=== PATIENT | female | born 1960 | race Caucasian/White ===

== ENCOUNTER 2017-07-06 12:34 | Inpatient (IN) ==
[2017-07-06] MEDS ORDERED: CeFAZolin Syr 3,000MG/30 ML 3,000 MG/30 ML SYRINGE IVPB ONE (13:06)
[2017-07-06] MEDS ORDERED: Albuterol 2.5 MG/3 ML NEBULIZER IH ONE (13:06)
[2017-07-06] MEDS ORDERED: Lidocaine -MPF 1% 2 ML VIAL ID ONE (13:06)
[2017-07-06] MEDS ORDERED: Ringers Solution, Lactated 1,000 ML IVC SCH ×3 (13:15→18:17)
[2017-07-06] MEDS ORDERED: Vancomycin 2,000 MG in D5% in Water 500 ML IVPB ONE (13:20)
--- NOTE | 2017-07-06 13:22 | Anesthesia Evaluation PreOp ---
Date of Encounter: 07/06/17 Time of Encounter: 13:19 - Past History Planned Operation: right total knee Cardiac History: HTN, Hyperlipidemia, Arrhythmia (a-fib), Cardiac Surgery (CABG) , Pacemaker/ICD (for SSS, completely pacer dependent), Other (CAD) Pulmonary History: Asthma, ZAIDA Dx CHIEF HOSPITAL ADMINISTRATOR History: Denies Any Significant HX Other Medical History: GERD, Other (IBS, morbid obesity) Anesthesia History: No Prior Anesthetic Complications, Past Anesthesia (CABG, pacer, breast lumpectomy, knee scope, tubal) : No Alcohol Use: none Drug use: none Medications and Allergies 3 Allergy/AdvReac Type Severity Reaction Status Date / Time bupropion [From Wellbutrin] Allergy See Unverified 07/06/17 13:25 Comments latex Allergy Rash Unverified 06/21/17 10:37 - Meds/Allergy Pre-op Review Medications Reviewed: Yes Allergies Reviewed: Yes Beta Blockers on Current Med List: Yes (0577) Anesthesia Results - Labs Laboratory Tests 06/21/17 06/21/17 06/21/17 10:51 10:51 10:51 Hgb 11.4 L Hct 35.9 Plt Count 165 PT 17.5 H INR 1.6 APTT 35.0 BUN 23 H Creatinine 1.13 H - Imaging Additional studies: Cath report from [facility] 10/04/16: 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, overall LV systolic function lower limits of normal, EF 45-50% Anesthesia Exam Selected Entries 07/06/17 12:56 Temperature 98.4 F Pulse Rate 60 Respiratory Rate 18 Blood Pressure 127/75 O2 Sat by Pulse Oximetry 95 Weight: 166kg, [id number] NPO (# of Hours): 8 - HEENT Pupil (Motor): EOMI Mallampati: III Teeth: Missing, Poor dentition Oral Opening: Less than or equal to 3 - CHIEF HOSPITAL ADMINISTRATOR LOC: Oriented CHIEF HOSPITAL ADMINISTRATOR Motor: Normal RUE, Normal LUE, Normal RLE, Normal LLE, Normal Face CHIEF HOSPITAL ADMINISTRATOR Sensory: Normal: RUE, LUE, RLE, LLE, Face - Cardiac Rhythm: Regular Murmur: None - Pulmonary Breath Sounds: bilateral Clear Respiratory Effort: Symmetrical Anesthesia Assess/Plan ASA Score: 4 Modified Ikng Scale for Level of Consciousness: Cooperative, oriented, and tranquil Anesthetic Plan: General Monitoring Plan: Standard Monitors Recovery Plan: PACU (discussed her high risk for GA d/t obesity and heart disease. Agrees to risk. We will attempt nerve block but patient aware we may not be able to do.)
--- NOTE | 2017-07-06 13:36 | History & Physical Report ---
Date of Encounter: 07/06/17 Time of Encounter: 13:36 24 Hour HP Update - Instructions Instructions: If the History and Physical is less than 30 days old and was completed prior to A.M. admission and or procedure and has NOT been updated on calendar day of procedure please complete this update prior to performing procedure. - Update Patient reports changes in Medical Condition: No Changes in examination, assessment, or condition: No Changes in Medication: No Preop tests/diagnostics Reviewed: Yes Surgery Remains Indicated: Yes Consent for Planned Operative Procedure(s) Verified: Yes - Pre-Operative Checklist Preoperative Checklist Indicated: No Prophylactic Antibiotic Ordered: Yes Is VTE Prophylaxis Indicated?: Yes
[2017-07-06] MEDS ORDERED: ROPIVACAINE HCL/PF 0.5% 30 ML VIAL ONE (13:45)
[2017-07-06] MEDS ORDERED: Lidocaine -MPF 2% 2 ML VIAL ONE (13:45)
[2017-07-06] MEDS ORDERED: *HR* FentaNYL (PF) 100 MCG/2 ML VIAL ONE (13:45)
[2017-07-06] MEDS ORDERED: *HR* Propofol 200 MG/20 ML VIAL IVP ONE (13:45)
[2017-07-06] MEDS ORDERED: *HR* Midazolam HCl 2 MG/2 ML VIAL ONE (13:45)
[2017-07-06] MEDS ORDERED: Dexamethasone 4 MG/ML VIAL ONE (13:45)
[2017-07-06] MEDS ORDERED: *HR* Succinylcholine 200 MG/10 ML VIAL IVP ONE (13:45)
[2017-07-06] MEDS ORDERED: Bupivacaine/Clonidine Syringe 1 EACH SYRINGE ONE (13:45)
[2017-07-06] MEDS ORDERED: Ondansetron 4 MG/2 ML VIAL ONE (13:45)
[2017-07-06] MEDS ORDERED: Ethanol\\Acetic Acid\\Na Ace\\Ben 1,000 ML IRRIG.SOLN IR ONE (13:57)
[2017-07-06] MEDS ORDERED: Ketamine *HR* 500 MG/10 ML MDV ONE (15:51)
[2017-07-06] MEDS ORDERED: EPHEDrine 50 MG/ML VIAL ONE (16:13)
[2017-07-06] MEDS ORDERED: Ondansetron 4 MG/2 ML VIAL IVP ONE (16:17)
[2017-07-06] MEDS ORDERED: *HR* HYDROmorphone (PF) 1 MG/ML SYRINGE IVP PRN (16:17)
--- NOTE | 2017-07-06 16:20 | Anesthesia Procedures ---
Date of Encounter: 07/06/17 Time of Encounter: 15:10 Procedures: Anesthesia - Nerve Block Procedure Date: 07/06/17 Time: 15:10 Allergies/Adv Reactions: wellbutrin, latex Pre-op Diagnosis: right knee arthritis Surgical Procedure: Right knee robotic total knee replacement Checklist: Correct Patient Identifier, Correct procedure, History checked Correct side: Right Blood Thinner: No Monitor Applied: EKG, BP, Pulse Oximetry Supplemental Oxygen via Nasal Cannula (L/min): 2 Sedation: Versed (mg): 2 Sedation: Fentanyl (mcg): 100 Indication: Post Op Analgesia Pre-op Neuro Deficits: No Block Type: Femoral, Other (IPAC) Catheter placed: No Sterile Technique: Yes Ultrasound used: Yes Anatomy identified: Yes Visual spread of Local: Yes Neuro Stimulation: Yes Nerve Stimulator Range: 0.2 - 0.4 mA Blood on Needle Aspiration: No Smooth Injection of Local: Yes Pain with Injection of Local: No Prep: Chlorhexadine Needle: 21 x 100 mm Stimuplex Local: 0.25% Bupivicaine w/Clonidine 20 mcg/cc (20ml IPAC), Ropivacaine (0.5% 30 ML) Volume (cc): 50 Number of Attempts: 1 Complications: None/effective block Vitals: Vital Signs Temperature 98.4 F 07/06/17 12:56 Pulse Rate 60 07/06/17 12:56 Respiratory Rate 18 07/06/17 12:56 Blood Pressure 127/75 07/06/17 12:56 O2 Sat by Pulse Oximetry 95 07/06/17 12:56 Temperature 98.4 F 07/06/17 13:26 Pulse Rate 60 07/06/17 15:12 Respiratory Rate 18 07/06/17 13:26 Blood Pressure 152/76 07/06/17 15:12 O2 Sat by Pulse Oximetry 97 07/06/17 15:12
[2017-07-06] MEDS ORDERED: *HR* Etomidate 40 MG/20 ML VIAL IVP ONE (16:47)
[2017-07-06] MEDS ORDERED: *HR* Rocuronium Bromide 50 MG/5 ML VIAL ONE (16:47)
[2017-07-06] MEDS ORDERED: Neostigmine Methylsulfate 3 MG/3 ML SYRINGE ONE (16:47)
[2017-07-06] MEDS ORDERED: Acetaminophen IV 1,000 MG/100 ML INFUS..BTL ONE (16:53)
--- NOTE | 2017-07-06 17:03 | Orthopedic Operative Note ---
Date of procedure: 07/06/17 Pre-op diagnosis: Right knee arthritis Post-op diagnosis: same Procedure: Procedure: Right robotic-assisted Total knee replacement Estimated blood loss: 300 cc Hardware: Metal and polyethylene replacement. [place] Femur: 4 Tibia for : PS insert: 9 Patella: 36 Exam Under anesthesia: 7 degree flexion contracture, 3 degree valgus as calculated by the robot full flexion and no instability Procedural Notes: Weight 4 arthritic changes all 3 compartments. Operative procedure: The patient was brought to the operating room and placed on the operating room table. After general anesthesia was administered the operative knee was examined. Findings were noted in the exam under anesthesia. The operative extremity was prepped and draped in sterile surgical fashion. The patient received IV antibiotics prior to skin incision. A standard midline incision was made centered over the patella. The incision was made through the skin and subcutaneous tissue. A medial parapatellar tendon approach was performed. Care was taken to preserve tissue along the medial aspect of the patella. And to protect the patella tendon. The deep MCL was released off the medial tibia. The infra patella fat pad was excised. The patella was everted and cut was made at the level of the insertion of the quadriceps and patella tendon. The patella was sized to a 36 the guide was seated and the lug holes are drilled. Knee was brought into flexion. Patient noted to have a 4 arthritic changes all 3 compartments. Steinmann pins were placed in the tibia and the femur for the tibial and femoral arrays respectively. Checkpoints were also placed in the tibia and the femur for calculation purposes. The knee including the femur and the tibial registered. Osteophytes, ACL and PCL were excised at this point. Extension was to a flexion contracture of 7 and valgus of 3. A valgus was applied and 0 degrees and assessed, and at 90 degrees of flexion and assessed and components were adjusted on the computer for the robotic cut positions. Femoral cuts were made first with robotic assistance, these included the anterior cut posterior cuts chamfer cuts. Tibial cut was then performed with robotic assistance as well. Bone fragments were removed, as well as the medial and lateral meniscus. The size 4 femoral guide was seated box cut was made lug holes are drilled. The size 4tibial tray was seated and prepared with the fin cutter. Trial reduction with the 9 PS Ananya revealed extension of loss of 5 degrees degree and full flexion. With a 3 degree varus alignment. Trial reduction revealed excellent patella tracking. All trial components were removed all bony surfaces were irrigated. Tibias press-fit followed by the femur PS Ananya size X was seated and secured patella. Patient had similar findings for motion and stability. The knee was then irrigated out with 2 L of pulse irrigation. The extensor mechanism was closed with #2 FiberWire suture and #2 PDS suture. The subcutaneous tissue was then irrigated and closed deep with #1 PDS suture superficially with 0 PDS suture and skin was closed with zip tie The patient was then placed in a sterile dressing and a postoperative brace extubated and transferred to recovery room in stable condition. Anesthesia: GETA Surgeon: Aaron Clement Condition: stable Disposition: PACU
[2017-07-06] MEDS ORDERED: *HR* HYDROmorphone 2 MG/ML SYRINGE ONE (17:05)
[2017-07-06 17:48] LABS: Hematocrit 31.5 % (35.3-44.9); Hemoglobin 10.4 g/dL (11.5-15.4)
--- NOTE | 2017-07-06 17:51 | Anesthesia Evaluation Post Op ---
Date of Encounter: 07/06/17 Time of Encounter: 17:50 - Vital Signs Vital Signs: Selected Entries 07/06/17 17:11 07/06/17 17:41 Temperature 97.8 F Pulse Rate 60 Respiratory Rate 16 Blood Pressure 127/71 O2 Sat by Pulse Oximetry 99 Oxygen Flow Rate (LPM) 4 - Lungs Lungs: Clear Ascult./Percussion - Airway Airway: Non-obstructed - Cardiovascular Regular Rate - Mental Status Mental Status: Alert & Oriented, Answers Appropriately - Pain Pain Scale: 3 Pain Scale used: Numeric (1 - 10) - Nausea Vomiting Nausea Vomiting: Not Present - Hydration Hydration: Ice chips, Has not voided - Discharge PostOp Status: Transfer Patient to floor
[2017-07-06] MEDS ORDERED: MOM Conc 10 ML UD.LIQ PO PRN (18:17)
[2017-07-06] MEDS ORDERED: tiZANidine 4 MG TABLET PO PRN (18:17)
[2017-07-06] MEDS ORDERED: Sennosides 8.6 MG TABLET PO PRN (18:17)
[2017-07-06] MEDS ORDERED: Ondansetron 4 MG/2 ML VIAL IVP PRN (18:17)
[2017-07-06] MEDS ORDERED: *HR* LORazepam 0.5 MG TABLET PO PRN (18:17)
[2017-07-06] MEDS ORDERED: *HR* OxyCODONE Immed Rel 5 MG TABLET PO PRN (18:17)
[2017-07-06] MEDS ORDERED: Naloxone 0.4 MG/ML INJ IVP PRN (18:17)
[2017-07-06] MEDS ORDERED: Temazepam 15 MG CAPSULE PO PRN (18:17)
[2017-07-06] MEDS: Gabapentin 300 MG CAPSULE PO SCH (20:11)
[2017-07-06] MEDS: Famotidine 20 MG TABLET PO SCH (20:11)
[2017-07-06] MEDS: Ibuprofen 800 MG TABLET PO SCH (20:11)
[2017-07-06] MEDS: *HR* HYDROmorphone (PF) 1 MG/ML SYRINGE IVP PRN (22:10)
[2017-07-06] MEDS: *HR* OxyCODONE Immed Rel 5 MG TABLET PO PRN (23:40)
[2017-07-06] MEDS: CeFAZolin Premix DUPLEX 2,000 MG/50 ML BAG IVPB SCH (23:41)
[2017-07-07] MEDS: *HR* HYDROmorphone (PF) 1 MG/ML SYRINGE IVP PRN ×2 (02:54→18:28)
[2017-07-07 04:31] LABS: Hematocrit 31.5 % (35.3-44.9); Hemoglobin 10.4 g/dL (11.5-15.4)
[2017-07-07 04:45] LABS: BUN/Creatinine Ratio 22 (6-26); Blood Urea Nitrogen 23 mg/dL (6-20); Calcium 8.9 mg/dL (8.6-10.3); Carbon Dioxide 29 mEq/L (23-29); Chloride 101 mEq/L (98-107); Glucose 184 mg/dL (70-105); Osmolality,Calculated 288 (280-300); Potassium 3.9 mEq/L (3.5-5.1); Sodium 135 mEq/L (136-145); eGFR For African Americans > 60 (> 60); eGFR For Non-African Americans 55 (> 60)
[2017-07-07] MEDS: *HR* OxyCODONE Immed Rel 5 MG TABLET PO PRN ×2 (05:32→17:45)
[2017-07-07] MEDS: Aspirin Enteric Coated 81 MG Tablet PO SCH (07:50)
[2017-07-07] MEDS: *HR* Rivaroxaban 10 MG TABLET PO SCH (07:52)
[2017-07-07] MEDS: Isosorbide MONOnitrate (24 HR) 60 MG TAB.ER.24H PO SCH (07:52)
[2017-07-07] MEDS: Diltiazem CD (24hr) 240 MG CAPSULE PO SCH (07:52)
[2017-07-07] MEDS: Famotidine 20 MG TABLET PO SCH ×2 (07:52→19:35)
[2017-07-07] MEDS: Gabapentin 300 MG CAPSULE PO SCH ×3 (07:52→19:35)
[2017-07-07] MEDS: CeFAZolin Premix DUPLEX 2,000 MG/50 ML BAG IVPB SCH (07:53)
[2017-07-07] MEDS: Ibuprofen 800 MG TABLET PO SCH ×3 (08:04→19:36)
--- NOTE | 2017-07-07 08:09 | Orthopedics Progress Note ---
Date of Encounter: 07/07/17 Time of Encounter: 08:09 Subjective Interval history: Patient was seen this morning doing well without complaints. Afebrile vital signs stable. Operative extremity: Neurovascularly intact Dressing clean dry and intact Calves nontender Assessment and plan: Continue with postoperative care Hematocrit 31 Objective Vital signs: Vital Signs Temp Pulse Resp BP Pulse Ox 07/07/17 04:02 97.6 F 61 17 120/75 95 07/06/17 23:29 97.6 F 72 18 144/70 99 07/06/17 20:05 97.6 F 65 15 104/59 99 07/06/17 19:05 97.5 F L 63 12 104/68 98 07/06/17 18:41 97.5 F L 62 12 114/65 97 07/06/17 18:12 96.9 F L 59 9 137/61 99 07/06/17 18:10 96.9 F L 59 9 137/61 99 07/06/17 17:41 60 16 127/71 99 07/06/17 17:31 60 14 132/76 93 07/06/17 17:21 60 18 132/62 96 07/06/17 17:11 97.8 F 60 12 135/70 93 07/06/17 15:12 60 152/76 97 07/06/17 15:00 62 130/84 98 07/06/17 13:26 98.4 F 60 18 127/75 95 07/06/17 12:56 98.4 F 60 18 127/75 95 Intake and Output 07/06/17 07/07/17 07/07/17 23:59 07:59 15:59 Intake Total 50 / 50 550 / 550 Output Total 300 / 300 400 / 400 Balance -250 / -250 150 / 150 Intake: IV Fluids 50 / 50 Ancef Premix DUPLEX 2,000 mg In 50 / 50 50 ml @ 100 mls/hr IVPB Q8HR [facility] Rx#:[id number] Oral 50 / 50 500 / 500 Output: Urine 400 / 400 Estimated Blood Loss 300 / 300 Other: Percent of Meal Consumed 100% - Labs CBC & BMP: 07/07/17 04:09 07/07/17 04:09 Labs: Abnormal lab results Hgb 10.4 g/dL (11.5-15.4) L 07/07/17 04:09 Hct 31.5 % (35.3-44.9) L 07/07/17 04:09 Sodium 135 mEq/L (136-145) L 07/07/17 04:09 BUN 23 mg/dL (6-20) H 07/07/17 04:09 Est GFR (Non-Af Amer) 55 (> 60) L 07/07/17 04:09 Glucose 184 mg/dL (70-105) H 07/07/17 04:09 - VTE Documentation of Mechanical Device: Venous foot pump, device Consult Discharge Plan - Plan Referrals: Suellen Ozuna, IMPROVEMENT RN [Primary Care Provider] -
--- NOTE | 2017-07-07 15:48 | Physician Discharge Referral ---
Home Health/Hosp Referral Info Attending Provider: Dr. Clement - Diagnosis (1) Status post total right knee replacement Priority: Primary Status: Acute - Respiratory Orders Smoking Cessation: Smoking cessation has been advised. For more information, call the [employer] Tobacco Quit Line at 2-487-CFIA-NOW. - Dressing/Wound Care Site: right hip Type of Dressing/Treatments w/Frequency: Opsite placed. Keep dressing intact until first follow up appointment. If > 50% saturated, notify office, remove dressing and place appropriate dressing back in place. Dressing is water resistant, not water-proof. OK to shower, but do not get dressing wet. - Diet/Nutrition Diet/Nutrition Orders: Regular - Activity Activity Orders: Ambulate - Services Needed Following services are medically necessary services: Physical Therapy, Occupational Therapy Other Treatments: Total Knee replacement Precautions x 6 weeks Apply cold therapy wrap 3-6x/day for 20 minutes at a time. Encourage ambulation throughout the day and incentive spirometer 10x/hour. Elevate affected extremity above heart as tolerated. Brace: Wear knee immobilizer at night x 2 weeks. - Transfer Medications Home Medications: Albuterol Sulfate [Proair Hfa] 2 puff IH Q6H PRN 07/06/17 [History] Aspirin [Lo-Dose Aspirin EC] 81 mg PO DAILY 07/06/17 [History] Atorvastatin [Lipitor] 40 mg PO HS 07/06/17 [History] Carvedilol [Carvedilol] 12.5 mg PO BID 07/06/17 [History] Clopidogrel [Plavix] 75 mg PO DAILY 07/06/17 [History] Diltiazem HCl [Diltiazem ER] 240 mg PO DAILY 07/06/17 [History] Gabapentin [Neurontin] 300 mg PO TID 07/06/17 [History] Ibuprofen [Ibuprofen] 800 mg PO TID 07/06/17 [History] Isosorbide MONOnitrate (24 HR) [Imdur] 60 mg PO DAILY 07/06/17 [History] LORazepam [Ativan] 0.5 mg PO Q8H PRN 07/06/17 [History] Levothyroxine Sodium 75 mcg PO DAILY 07/06/17 [History] Lisinopril-HCTZ 10-12.5 [Prinzide 10-12.5] 1 tab PO BID 07/06/17 [History] Ranitidine HCl [Heartburn Relief] 150 mg PO BID 07/06/17 [History] Rivaroxaban [Xarelto] 20 mg PO DAILY 07/06/17 [History] Tizanidine HCl [Tizanidine HCl] 4 mg PO BID PRN 07/06/17 [History] Allergies/Adverse Reactions: 3 Allergy/AdvReac Type Severity Reaction Status Date / Time bupropion [From Wellbutrin] Allergy See Verified 07/07/17 15:48 Comments latex Allergy Rash Verified 07/07/17 15:48 Certification: Further, I certify that my clinical findings support that this patient is homebound (i.e. absences from home require considerable and taxing effort and are for medical reasons or baptism services or infrequently or short duration when for other reasons) because: Homebound Reason: Post-surgery restriction and or conditions limit ability to leave home Attestation: My signature below is to certify that this patient is under my care and that I, or nurse practitioner, or a physician environmental engineering assistant working with me, has a face-to- face encounter with this patient.
--- NOTE | 2017-07-07 15:54 | Physician Discharge Referral ---
ExtendedCare Referral Info Transfer To: REPLACED BY [facility] Provider in Charge: Dr. Clement - Diagnosis (1) Status post total right knee replacement Priority: Primary Status: Acute Expected Duration of Placement: <30 days Prognosis: Good Aware of Diagnosis: Patient Aware of Prognosis: Patient - Transfer Medications Home Medications: Albuterol Sulfate [Proair Hfa] 2 puff IH Q6H PRN 07/06/17 [History] Aspirin [Lo-Dose Aspirin EC] 81 mg PO DAILY 07/06/17 [History] Atorvastatin [Lipitor] 40 mg PO HS 07/06/17 [History] Carvedilol [Carvedilol] 12.5 mg PO BID 07/06/17 [History] Clopidogrel [Plavix] 75 mg PO DAILY 07/06/17 [History] Diltiazem HCl [Diltiazem ER] 240 mg PO DAILY 07/06/17 [History] Gabapentin [Neurontin] 300 mg PO TID 07/06/17 [History] Ibuprofen [Ibuprofen] 800 mg PO TID 07/06/17 [History] Isosorbide MONOnitrate (24 HR) [Imdur] 60 mg PO DAILY 07/06/17 [History] LORazepam [Ativan] 0.5 mg PO Q8H PRN 07/06/17 [History] Levothyroxine Sodium 75 mcg PO DAILY 07/06/17 [History] Lisinopril-HCTZ 10-12.5 [Prinzide 10-12.5] 1 tab PO BID 07/06/17 [History] Ranitidine HCl [Heartburn Relief] 150 mg PO BID 07/06/17 [History] Rivaroxaban [Xarelto] 20 mg PO DAILY 07/06/17 [History] Tizanidine HCl [Tizanidine HCl] 4 mg PO BID PRN 07/06/17 [History] Allergies/Adverse Reactions: 3 Allergy/AdvReac Type Severity Reaction Status Date / Time bupropion [From Wellbutrin] Allergy See Verified 07/07/17 15:48 Comments latex Allergy Rash Verified 07/07/17 15:48 - Respiratory Orders Smoking Cessation: Smoking cessation has been advised. For more information, call the [place] Tobacco Quit Line at 0-149-BXBV-NOW. - Ancillary Orders May use pressure relief devices daily prn, May go on JAVON w/family/respon democrat w /meds at nurse discretion PRN, May consult with Dentist, Inlayer, Report Clerk PRN - Mobility Orders Chair, Ambulate - Rehabiliation Orders Rehab Potential: Good Rehab Orders: Evaluation for Physical Therapy, Evaluation for Occupational Therapy Other: Total Knee replacement Precautions x 6 weeks Apply cold therapy wrap 3-6x/day for 20 minutes at a time. Encourage ambulation throughout the day and incentive spirometer 10x/hour. Elevate affected extremity above heart as tolerated. Brace: Wear knee immobilizer at night x 2 weeks. - Treatments Skin tear care topically daily PRN per policy List/Other: Opsite placed. Keep dressing intact until first follow up appointment. If > 50% saturated, notify office, remove dressing and place appropriate dressing back in place. Dressing is water resistant, not water-proof. OK to shower, but do not get dressing wet. - Diet Orders Regular CERTIFICATION: I certify that the transfer of the above named patient to an Extended Care Facility is necessary for the continuing treatment of the diagnosis listed. The above information is true and accurate reflection of patient's current condition. Confidential - Redisclosure prohibited without a patient's written consent.
[2017-07-08 01:34] LABS: Hematocrit 28.3 % (35.3-44.9); Hemoglobin 9.2 g/dL (11.5-15.4)
[2017-07-08] MEDS: *HR* OxyCODONE Immed Rel 5 MG TABLET PO PRN ×4 (01:35→16:57)
[2017-07-08 01:56] LABS: Calcium 8.8 mg/dL (8.6-10.3); Potassium 4.3 mEq/L (3.5-5.1)
[2017-07-08] MEDS: *HR* HYDROmorphone (PF) 1 MG/ML SYRINGE IVP PRN (02:49)
--- NOTE | 2017-07-08 06:42 | Discharge Summary ---
Date of Encounter: 07/09/17 Time of Encounter: 11:08 - Discharge Diagnosis (1) Arthritis of right knee Priority: Primary Status: Chronic (2) Morbid obesity with BMI of 50.0-59.9, adult Priority: Secondary Status: Chronic (3) Hypertension Priority: Secondary Status: Chronic Qualifiers: Hypertension type: unspecified Qualified Code(s): I10 - Essential (primary ) hypertension (4) Hyperlipidemia Priority: Secondary Status: Chronic Qualifiers: Hyperlipidemia type: unspecified Qualified Code(s): E78.5 - Hyperlipidemia , unspecified (5) Atrial fibrillation Priority: Secondary Status: Chronic Qualifiers: Atrial fibrillation type: unspecified Qualified Code(s): I48.91 - Unspecified atrial fibrillation (6) Coronary artery disease Priority: Secondary Status: Acute Qualifiers: Coronary Disease-Associated Artery/Lesion type: unspecified vessel or lesion type [place] vs. transplanted heart: [place] heart Associated angina: angina presence unspecified Qualified Code(s): I25.10 - Atherosclerotic heart disease of [place] coronary artery without angina pectoris (7) History of coronary artery bypass graft Priority: Secondary Status: Chronic (8) Pacemaker Priority: Secondary Status: Chronic (9) Asthma Priority: Secondary Status: Chronic Qualifiers: Asthma severity: unspecified severity Asthma persistence: unspecified Asthma complication type: unspecified Qualified Code(s): J45.909 - Unspecified asthma, uncomplicated (10) Obstructive sleep apnea Priority: Secondary Status: Chronic (11) Acute blood loss anemia Priority: Primary Status: Acute (12) Status post total right knee replacement Priority: Primary Status: Acute - Discharge Medications Prescriptions: OxyCODONE Immed Rel [Roxicodone 5 MG] 5 mg PO Q4HR PRN #24 tablet PRN Reason: Pain Home Medications: Albuterol Sulfate [Proair Hfa] 2 puff IH Q6H PRN 07/06/17 [History] Aspirin [Lo-Dose Aspirin EC] 81 mg PO DAILY 07/06/17 [History] Atorvastatin [Lipitor] 40 mg PO HS 07/06/17 [History] Carvedilol 12.5 mg PO BID 07/06/17 [History] Clopidogrel [Plavix] 75 mg PO DAILY 07/06/17 [History] Diltiazem HCl [Diltiazem ER] 240 mg PO DAILY 07/06/17 [History] Gabapentin [Neurontin] 300 mg PO TID 07/06/17 [History] Ibuprofen 800 mg PO TID 07/06/17 [History] Isosorbide MONOnitrate (24 HR) [Imdur] 60 mg PO DAILY 07/06/17 [History] LORazepam [Ativan] 0.5 mg PO Q8H PRN 07/06/17 [History] Levothyroxine Sodium 75 mcg PO DAILY 07/06/17 [History] Lisinopril-HCTZ 10-12.5 [Prinzide 10-12.5] 1 tab PO BID 07/06/17 [History] Ranitidine HCl [Heartburn Relief] 150 mg PO BID 07/06/17 [History] Rivaroxaban [Xarelto] 20 mg PO DAILY 07/06/17 [History] Tizanidine HCl 4 mg PO BID PRN 07/06/17 [History] OxyCODONE Immed Rel [Roxicodone 5 MG] 5 mg PO Q4HR PRN #24 tablet 07/08/17 [Rx] Allergies/Adverse Reactions: 3 Allergy/AdvReac Type Severity Reaction Status Date / Time bupropion [From Wellbutrin] Allergy See Verified 07/07/17 15:48 Comments latex Allergy Rash Verified 07/07/17 15:48 Labs on day of discharge: Labs from last 24 hours 07/08/17 07/08/17 00:44 00:44 Hgb 9.2 L Hct 28.3 L Sodium 139 Potassium 4.3 Chloride 103 Carbon Dioxide 30 H BUN 24 H Creatinine 1.15 Est GFR ( Amer) 59 L Est GFR (Non-Af Amer) 49 L BUN/Creatinine Ratio 21 Glucose 157 H Calculated Osmolality 295 Calcium 8.8 - Impressions ITS Impressions Knee X-Ray 07/06/17 13:37 IMPRESSION: Right knee replacement in normal alignment. No acute fracture. Immediate postoperative changes. D/ / Alfredo Pan MD / Alfredo Pan MD Interpreting Provider: Alfredo Pan MD Date of admission: 07/06/17 17:56 Primary care physician: Suellen Ozuna CNP Consults: 07/06/17 18:17 Consult to Occupational Therapy [CONS] Routine Comment: Evaluate, develop and implement POC Reason for Consult: post knee surgery Consult to Orthopedic Navigator [CONS] [CONS] Routine Consult to Physical Therapy [CONS] Routine Comment: Evaluate, develop and impliment POC Reason for Consult: post knee surgery Consult to Wool Merchant [CONS] Routine Reason for SW Consult: post op joint replacement RT Post Op Consult [CONS] Routine - Patient Status Disposition: Transfer Inpatient Rehab Fac Condition: Good Functional capacity at discharge: independent ambulation Overall status at discharge: patient is progressing back to baseline - Discharge Instructions Follow Up With: Suellen zOuna CNP [Primary Care Provider] - - Hospital Course Hospital course: Ms. Zavaleta is a 56 year old female s/p right total knee, uneventful postop course, received antibiotics and PT dc stable condition - Time Spent with Patient Total time spent providing and/or coordinating discharge services: - VTE Documentation of Mechanical Device: Venous foot pump, device
--- NOTE | 2017-07-08 06:45 | Orthopedics Progress Note ---
Date of Encounter: 07/08/17 Time of Encounter: 06:44 - Assessment and Plan (1) Arthritis of right knee Current Visit: Yes Status: Chronic (2) Morbid obesity with BMI of 50.0-59.9, adult Current Visit: Yes Status: Chronic (3) Hypertension Current Visit: Yes Status: Chronic Qualifiers: Hypertension type: unspecified Qualified Code(s): I10 - Essential (primary ) hypertension (4) Hyperlipidemia Current Visit: Yes Status: Chronic Qualifiers: Hyperlipidemia type: unspecified Qualified Code(s): E78.5 - Hyperlipidemia , unspecified (5) Atrial fibrillation Current Visit: Yes Status: Chronic Qualifiers: Atrial fibrillation type: unspecified Qualified Code(s): I48.91 - Unspecified atrial fibrillation (6) Coronary artery disease Current Visit: Yes Status: Acute Qualifiers: Coronary Disease-Associated Artery/Lesion type: unspecified vessel or lesion type [place] vs. transplanted heart: [place] heart Associated angina: angina presence unspecified Qualified Code(s): I25.10 - Atherosclerotic heart disease of [place] coronary artery without angina pectoris (7) History of coronary artery bypass graft Current Visit: Yes Status: Chronic (8) Pacemaker Current Visit: Yes Status: Chronic (9) Asthma Current Visit: Yes Status: Chronic Qualifiers: Asthma severity: unspecified severity Asthma persistence: unspecified Asthma complication type: unspecified Qualified Code(s): J45.909 - Unspecified asthma, uncomplicated (10) Obstructive sleep apnea Current Visit: Yes Status: Chronic (11) Acute blood loss anemia Current Visit: Yes Status: Acute (12) Status post total right knee replacement Current Visit: Yes Status: Acute Subjective Interval history: Patient was seen this morning doing well without complaints. Afebrile vital signs stable. Operative extremity: Neurovascularly intact Dressing clean dry and intact [place] nontender Assessment and plan: Continue with postoperative care Hb 9.2 Objective Vital signs: Vital Signs Temp Pulse Resp BP Pulse Ox 07/07/17 23:13 98.0 F 60 14 130/63 99 07/07/17 19:29 98.2 F 60 14 130/58 98 07/07/17 15:07 98.1 F 60 18 125/66 96 07/07/17 12:21 98.0 F 60 16 143/61 95 07/07/17 08:50 98.2 F 79 16 123/67 93 07/07/17 08:17 95 Intake and Output 07/07/17 07/07/17 07/08/17 15:59 23:59 07:59 Intake Total 840 / 840 120 / 120 Output Total 1100 / 1100 700 / 700 600 / 600 Balance -260 / -260 -580 / -580 -600 / -600 Intake: Oral 840 / 840 120 / 120 Output: Urine 1100 / 1100 700 / 700 600 / 600 Other: Meal Lunch Dinner Percent of Meal Consumed 100% 50% # Voids 1 - Labs CBC & BMP: 07/08/17 00:44 07/08/17 00:44 Labs: Abnormal lab results Hgb 9.2 g/dL (11.5-15.4) L 07/08/17 00:44 Hct 28.3 % (35.3-44.9) L 07/08/17 00:44 Carbon Dioxide 30 mEq/L (23-29) H 07/08/17 00:44 BUN 24 mg/dL (6-20) H 07/08/17 00:44 Est GFR ( Amer) 59 (> 60) L 07/08/17 00:44 Est GFR (Non-Af Amer) 49 (> 60) L 07/08/17 00:44 Glucose 157 mg/dL (70-105) H 07/08/17 00:44 - VTE Documentation of Mechanical Device: Venous foot pump, device Consult Discharge Plan - Plan Referrals: Suellen Ozuna, [employer] [Primary Care Provider] - Prescriptions: OxyCODONE Immed Rel [Roxicodone 5 MG] 5 mg PO Q4HR PRN #24 tablet PRN Reason: Pain
[2017-07-08] MEDS: Gabapentin 300 MG CAPSULE PO SCH ×3 (08:49→19:58)
[2017-07-08] MEDS: Aspirin Enteric Coated 81 MG Tablet PO SCH (08:49)
[2017-07-08] MEDS: *HR* Rivaroxaban 10 MG TABLET PO SCH (08:49)
[2017-07-08] MEDS: Famotidine 20 MG TABLET PO SCH ×2 (08:50→19:58)
[2017-07-08] MEDS: Diltiazem CD (24hr) 240 MG CAPSULE PO SCH (08:50)
[2017-07-08] MEDS: Isosorbide MONOnitrate (24 HR) 60 MG TAB.ER.24H PO SCH (08:50)
[2017-07-08] MEDS: Ibuprofen 800 MG TABLET PO SCH ×3 (08:51→19:58)
--- NOTE | 2017-07-09 11:10 | Orthopedics Progress Note ---
Date of Encounter: 07/09/17 Time of Encounter: 11:10 - Assessment and Plan (1) Arthritis of right knee Current Visit: Yes Status: Chronic (2) Morbid obesity with BMI of 50.0-59.9, adult Current Visit: Yes Status: Chronic (3) Hypertension Current Visit: Yes Status: Chronic Qualifiers: Hypertension type: unspecified Qualified Code(s): I10 - Essential (primary ) hypertension (4) Hyperlipidemia Current Visit: Yes Status: Chronic Qualifiers: Hyperlipidemia type: unspecified Qualified Code(s): E78.5 - Hyperlipidemia , unspecified (5) Atrial fibrillation Current Visit: Yes Status: Chronic Qualifiers: Atrial fibrillation type: unspecified Qualified Code(s): I48.91 - Unspecified atrial fibrillation (6) Coronary artery disease Current Visit: Yes Status: Acute Qualifiers: Coronary Disease-Associated Artery/Lesion type: unspecified vessel or lesion type [place] vs. transplanted heart: [place] heart Associated angina: angina presence unspecified Qualified Code(s): I25.10 - Atherosclerotic heart disease of [place] coronary artery without angina pectoris (7) History of coronary artery bypass graft Current Visit: Yes Status: Chronic (8) Pacemaker Current Visit: Yes Status: Chronic (9) Asthma Current Visit: Yes Status: Chronic Qualifiers: Asthma severity: unspecified severity Asthma persistence: unspecified Asthma complication type: unspecified Qualified Code(s): J45.909 - Unspecified asthma, uncomplicated (10) Obstructive sleep apnea Current Visit: Yes Status: Chronic (11) Acute blood loss anemia Current Visit: Yes Status: Acute (12) Status post total right knee replacement Current Visit: Yes Status: Acute Subjective Interval history: Patient was seen this morning doing well without complaints. Afebrile vital signs stable. Operative extremity: Neurovascularly intact Dressing clean dry and intact [place] nontender Assessment and plan: Continue with postoperative care DC Today Objective Vital signs: Vital Signs Temp Pulse Resp BP Pulse Ox 07/09/17 10:55 97 07/08/17 23:54 98.5 F 60 18 132/60 97 07/08/17 19:53 98.5 F 61 19 114/59 97 07/08/17 11:17 98.1 F 63 18 110/54 97 Intake and Output 07/08/17 07/09/17 07/09/17 23:59 07:59 15:59 Intake Total 1160 / 1160 Output Total 850 / 850 850 / 850 Balance 310 / 310 -850 / -850 Intake: Oral 1160 / 1160 Output: Urine 850 / 850 850 / 850 Other: Meal Dinner Percent of Meal Consumed 100% Weight 167.7 kg - Labs CBC & BMP: 07/08/17 00:44 07/08/17 00:44 Labs: Abnormal lab results Hgb 9.2 g/dL (11.5-15.4) L 07/08/17 00:44 Hct 28.3 % (35.3-44.9) L 07/08/17 00:44 Carbon Dioxide 30 mEq/L (23-29) H 07/08/17 00:44 BUN 24 mg/dL (6-20) H 07/08/17 00:44 Est GFR ( Amer) 59 (> 60) L 07/08/17 00:44 Est GFR (Non-Af Amer) 49 (> 60) L 07/08/17 00:44 Glucose 157 mg/dL (70-105) H 07/08/17 00:44 - VTE Documentation of Mechanical Device: Venous foot pump, device Consult Discharge Plan - Plan Referrals: Suellen Ozuna, [employer] [Primary Care Provider] - Prescriptions: OxyCODONE Immed Rel [Roxicodone 5 MG] 5 mg PO Q4HR PRN #24 tablet PRN Reason: Pain
[2017-07-09 11:54] VITALS: BP 139/69
[2017-07-09] MEDS: *HR* OxyCODONE Immed Rel 5 MG TABLET PO PRN (14:33)
== END 2017-07-09 14:41 | DRG 470 ==
LOC: SAMDAY 12:34 → 3NENU 17:56
PROVIDERS: ADMIT Orthopaedic Surgery; ATTEND Orthopaedic Surgery